=== PATIENT | female | born 1995 | race Caucasian/White ===

== ENCOUNTER 2017-08-09 19:41 | Emergency (ER) | payer OTHER ==
[~2017-08-09] VITALS: Ht 167.6 cm; Wt 78.8 kg
[2017-08-09] MEDS ORDERED: MOTRIN600 MG PO (21:13)
[2017-08-09 21:27] VITALS: BP 132/75
== END 2017-08-09 21:27 | disposition home or self-care (01) ==
LOC: EME 19:41
DX: S16.1XXA Strain of muscle, fascia and tendon at neck level, initial encounter (principal); R51 Headache; V49.40XA Driver injured in collision with unspecified motor vehicles in traffic accident, initial encounter; Y92.410 Unspecified street and highway as the place of occurrence of the external cause
CPT/HCPCS: 72050; 99281; 99284